=== PATIENT | male | born 1970 | race Caucasian/White ===

== ENCOUNTER 2024-09-26 10:35 | Emergency (ER) | payer BC ==
[~2024-09-26] VITALS: Ht 182.9 cm; Wt 95.0 kg
[2024-09-26] VITALS (12 sets, daily range): BP systolic 120–154; BP diastolic 80–99
[2024-09-26] MEDS ORDERED: ONDANSETRON HCl 4 MG/2 ML SDV IV ONE (10:55)
[2024-09-26] MEDS ORDERED: LOSARTAN POTASS50 MG PO (10:59)
[2024-09-26] MEDS ORDERED: HYDROCHLOROTHIA50 MG PO (10:59)
[2024-09-26 11:12] LABS: BASO% 0.6 % (0-3); EOS% 2.5 % (0-8); HEMATOCRIT 34.6 % (39.0-50.0); HEMOGLOBIN 11.6 g/dl (14.0-18.0); IMMATURE GRANULOCYTES 0.2 % (0.0-5.0); LYMPH% 22.3 % (15-41); MEAN CELL VOLUME 89.2 fL CALC (80.0-100.0); MEAN CORPUSCULAR HGB 29.9 pG CALC (26.0-32.0); MEAN CORPUSCULAR HGB CONC 33.5 g/dL CAL (32.0-36.0); MONO% 9.9 % (2-13); NEUT# 3.06 thou/uL (1.82-7.42); NEUT% 64.5 % (42-76); RED BLOOD COUNT 3.88 mill/uL (4.70-6.10); RED CELL DISTRI WIDTH 11.5 % (11.5-15.5)
[2024-09-26 11:26] LABS: ALBUMIN 4.2 g/dL (3.2-5.0); ALKALINE PHOSPHATASE 84 u/l (38-126); ANION GAP 11 (6-22 (CALC)); BUN 10 mg/dL (9-20); BUN/CREATININE RATIO 12 (12-20 (CALC)); CARBON DIOXIDE 28 mmol/l (22-30); CHLORIDE 103 mmol/l (95-108); CREATININE 0.8 mg/dL (0.7-1.3); ESTIMATED GFR 106 ML/MIN (>=90 (CALC)); LIPASE 276 u/l (23-300); POTASSIUM 4.2 mmol/l (3.5-5.1); SGOT/AST 80 u/l (17-59); SODIUM 139 mmol/l (137-146); TOTAL PROTEIN 7.3 g/dL (6.3-8.2)
[2024-09-26 11:50] LABS: URINE BILIRUBIN - DIPSTICK Negative (NEGATIVE); URINE BLOOD DIPSTICK Negative (NEGATIVE); URINE GLUCOSE - DIPSTICK Negative (NEGATIVE); URINE KETONE Negative (NEGATIVE); URINE LEUK ESTERASE Negative (NEGATIVE); URINE NITRITE - DIPSTICK Negative (Negative); URINE PROTEIN - DIPSTICK Negative (NEG-TRACE); URINE UROBILINOGEN - DIPSTICK 0.2 E.U./dL (0.2)
[2024-09-26 11:57] LABS: URINE COLOR Yellow
[2024-09-26] MEDS ORDERED: ZITHROMAX250 MG PO (13:48)
== END 2024-09-26 14:00 | disposition home or self-care (01) | DRG 194 ==
LOC: ED 10:35
PROVIDERS: Family Medicine
DX: J18.9 Pneumonia, unspecified organism (principal); R04.2 Hemoptysis; D64.9 Anemia, unspecified; I10 Essential (primary) hypertension; Z20.822 Contact with and (suspected) exposure to COVID-19
CPT/HCPCS: J2405; Q9967